=== PATIENT | female | born 1940 | race Two or more races ===

== ENCOUNTER 2021-05-31 21:40 | Inpatient (IN) | payer MEDICARE, MEDICAID ==
[~2021-05-31] VITALS: Ht 167.6 cm; Wt 67.1 kg
[2021-05-31] MEDS ORDERED: SODIUM CHLORIDE 0.9% 1,000 ML IV ONE (22:15)
[2021-05-31 23:01] LABS: BASOPHILS % 0.9 % (0.0-2.0); EOSINOPHILS % 1.1 % (0.0-5.0); HEMATOCRIT. 35.1 % (36.0-48.0); HEMOGLOBIN. 12.3 g/dL (12.0-16.0); LYMPHOCYTES % 21.2 % (20.0-50.0); MEAN CORPUSCULAR HEMOGLOBIN 37.1 pg (28.0-32.0); MEAN CORPUSCULAR VOLUME 105.5 fL (81.0-99.0); MONOCYTES % 14.3 % (2.0-8.0); NEUTROPHILS % 62.5 % (40.0-76.0); RED BLOOD CELL COUNT 3.33 mill/uL (4.2-5.4)
[2021-05-31 23:08] LABS: CHLORIDE 99 mEq/L (98-107)
[2021-05-31 23:32] LABS: MEAN PLATELET VOLUME 9.9 fl (7.4-10.4); PLATELET 93 x1000/uL (130-400)
[2021-06-01 01:06] LABS: CLARITY URINE CLEAR (CLEAR); COLOR URINE DARK YELLOW (YELLOW); KETONES URINE NEGATIVE (NEGATIVE); LEUKOCYTE ESTERASE URINE NEGATIVE (NEGATIVE); NITRITE URINE NEGATIVE (NEGATIVE); OCCULT BLOOD URINE NEGATIVE (NEGATIVE); PH URINE 6.5 (4.5-8.0); PROTEIN URINE NEGATIVE (NEGATIVE); SPECIFIC GRAVITY URINE 1.018 (1.005-1.030)
[2021-06-01] MEDS ORDERED: PIPERACILLIN/TAZ 3.375G PREMIX 50 ML IV ONE (01:15)
[2021-06-01] MEDS ORDERED: SODIUM POLYSTYRENE SULFONATE 15 G/60 ML BOT PO ONE (02:30)
[2021-06-01] MEDS ORDERED: HYDRALAZINE 20MG/ML VIAL IV SCH (05:00)
[2021-06-01] MEDS: AMLODIPINE 5MG TABLET PO SCH (05:56)
[2021-06-01] MEDS ORDERED: DEXTROSE 50% WATER 50ML SYRINGE IV PRN (07:45)
[2021-06-01] MEDS ORDERED: CEFTRIAXONE 1 G PREMIX 50 ML IV SCH (08:00)
[2021-06-01] MEDS ORDERED: CEFTRIAXONE 1,000 MG in DEXTROSE 5% WATER 50 ML IV SCH (09:30)
[2021-06-01] MEDS: BLOOD SUGAR DIAGNOSTIC STRIP TEST SCH ×3 (11:43→20:44)
[2021-06-01] MEDS: INSULIN LISPRO 100 UNITS/ML SUBCUT SCH ×3 (11:47→20:44)
[2021-06-01] MEDS ORDERED: LACTULOSE 20G/30ML UDC PO SCH (14:00)
[2021-06-01] MEDS: LACTULOSE 20G/30ML UDC PO SCH ×4 (15:00→22:48)
[2021-06-01] MEDS ORDERED: LINA5TAB PO (16:38)
[2021-06-01] MEDS ORDERED: ALD100 PO (16:38)
[2021-06-01] MEDS ORDERED: TORS10TA17 PO (16:38)
[2021-06-01 16:56] VITALS: BP 151/66
[2021-06-01 18:10] LABS: BASOPHILS % 0.6 % (0.0-2.0); EOSINOPHILS % 0.7 % (0.0-5.0); HEMATOCRIT. 36.6 % (36.0-48.0); HEMOGLOBIN. 12.3 g/dL (12.0-16.0); LYMPHOCYTES % 15.4 % (20.0-50.0); MEAN CORPUSCULAR HEMOGLOBIN 35.4 pg (28.0-32.0); MEAN CORPUSCULAR VOLUME 105.4 fL (81.0-99.0); MEAN PLATELET VOLUME 10.5 fl (7.4-10.4); MONOCYTES % 12.1 % (2.0-8.0); NEUTROPHILS % 71.2 % (40.0-76.0); PLATELET 106 x1000/uL (130-400); RED BLOOD CELL COUNT 3.48 mill/uL (4.2-5.4); RED CELL DISTRIBUTION WIDTH 14.3 % (11.6-14.6)
[2021-06-01 18:28] LABS: INR 1.4; PROTHROMBIN TIME 15.1 sec (9.6-11.0)
[2021-06-01 18:31] LABS: CHLORIDE 100 mEq/L (98-107)
[2021-06-01 20:00] VITALS: BP 149/90
[2021-06-01] MEDS: SPIRONOLACTONE 50MG TABLET PO SCH (20:42)
[2021-06-02] VITALS: BP 150/85
[2021-06-02] MEDS: LACTULOSE 20G/30ML UDC PO SCH ×6 (02:52→21:58)
[2021-06-02 04:00] VITALS: BP 117/94
[2021-06-02] MEDS: AMLODIPINE 5MG TABLET PO SCH ×2 (05:56→08:40)
[2021-06-02] MEDS: INSULIN LISPRO 100 UNITS/ML SUBCUT SCH ×4 (05:57→21:00)
[2021-06-02] MEDS: BLOOD SUGAR DIAGNOSTIC STRIP TEST SCH ×4 (05:57→21:58)
[2021-06-02 06:08] LABS: BASOPHILS % 0.4 % (0.0-2.0); EOSINOPHILS % 0.8 % (0.0-5.0); HEMATOCRIT. 36.5 % (36.0-48.0); HEMOGLOBIN. 12.6 g/dL (12.0-16.0); LYMPHOCYTES % 20.7 % (20.0-50.0); MEAN CORPUSCULAR VOLUME 104.5 fL (81.0-99.0); MEAN PLATELET VOLUME 10.9 fl (7.4-10.4); MONOCYTES % 11.1 % (2.0-8.0); PLATELET 100 x1000/uL (130-400); RED BLOOD CELL COUNT 3.49 mill/uL (4.2-5.4); RED CELL DISTRIBUTION WIDTH 14.1 % (11.6-14.6)
[2021-06-02 06:14] LABS: INR 1.4; PROTHROMBIN TIME 14.3 sec (9.6-11.0)
[2021-06-02 07:03] LABS: CHLORIDE 103 mEq/L (98-107)
[2021-06-02 08:15] VITALS: BP 163/92
[2021-06-02] MEDS ORDERED: LACTULOSE 20G/30ML UDC PO SCH (08:30)
[2021-06-02] MEDS: SPIRONOLACTONE 50MG TABLET PO SCH (08:40)
[2021-06-02 12:30] VITALS: BP 144/90
[2021-06-02] MEDS: CEFTRIAXONE 1,000 MG in DEXTROSE 5% WATER 50 ML IV SCH (13:08)
[2021-06-02 16:30] VITALS: BP 133/95
[2021-06-02 20:00] VITALS: BP 151/59
[2021-06-03] VITALS (7 sets, daily range): BP systolic 123–159; BP diastolic 62–72
[2021-06-03] MEDS: LACTULOSE 20G/30ML UDC PO SCH ×6 (02:53→21:58)
[2021-06-03] MEDS: BLOOD SUGAR DIAGNOSTIC STRIP TEST SCH ×4 (07:20→21:58)
[2021-06-03] MEDS: INSULIN LISPRO 100 UNITS/ML SUBCUT SCH ×4 (07:48→21:00)
[2021-06-03] MEDS: AMLODIPINE 5MG TABLET PO SCH (08:58)
[2021-06-03] MEDS: SPIRONOLACTONE 50MG TABLET PO SCH (08:58)
[2021-06-03] MEDS: CEFTRIAXONE 1,000 MG in DEXTROSE 5% WATER 50 ML IV SCH (12:41)
[2021-06-03] MEDS ORDERED: LACT10SO7 PO (13:16)
[2021-06-03] MEDS ORDERED: AMLO5TAB88 PO (13:16)
[2021-06-03 13:27] LABS: INR 1.4; PROTHROMBIN TIME 14.7 sec (9.6-11.0)
[2021-06-04] MEDS: LACTULOSE 20G/30ML UDC PO SCH ×6 (03:08→22:51)
[2021-06-04 04:01] VITALS: BP 158/72
[2021-06-04] MEDS: BLOOD SUGAR DIAGNOSTIC STRIP TEST SCH ×4 (06:23→21:04)
[2021-06-04 07:50] LABS: INR 1.4
[2021-06-04] MEDS: INSULIN LISPRO 100 UNITS/ML SUBCUT SCH ×4 (07:50→21:34)
[2021-06-04 07:55] VITALS: BP 150/73
[2021-06-04] MEDS: AMLODIPINE 5MG TABLET PO SCH (10:12)
[2021-06-04] MEDS: SPIRONOLACTONE 50MG TABLET PO SCH (10:12)
[2021-06-04 11:25] VITALS: BP 126/69
[2021-06-04] MEDS: CEFTRIAXONE 1,000 MG in DEXTROSE 5% WATER 50 ML IV SCH (13:20)
[2021-06-04 15:55] VITALS: BP 151/71
[2021-06-04 20:00] VITALS: BP 163/64
[2021-06-04] MEDS ORDERED: METOPROLOL SUCCINATE 50MG ER TABLET PO SCH (21:15)
[2021-06-04] MEDS: METOPROLOL SUCCINATE 50MG ER TABLET PO SCH (22:52)
[2021-06-05] VITALS: BP 153/69
[2021-06-05] MEDS: LACTULOSE 20G/30ML UDC PO SCH ×4 (02:27→15:00)
[2021-06-05 03:03] VITALS: BP 145/67
[2021-06-05 04:00] VITALS: BP 145/67
[2021-06-05] MEDS: BLOOD SUGAR DIAGNOSTIC STRIP TEST SCH ×3 (06:02→17:20)
[2021-06-05 07:04] LABS: CHLORIDE 111 mEq/L (98-107)
[2021-06-05 07:10] LABS: HEMATOCRIT. 32.7 % (36.0-48.0); HEMOGLOBIN. 11.3 g/dL (12.0-16.0); MEAN CORPUSCULAR HEMOGLOBIN 36.5 pg (28.0-32.0); MEAN CORPUSCULAR VOLUME 105.6 fL (81.0-99.0); RED BLOOD CELL COUNT 3.09 mill/uL (4.2-5.4); RED CELL DISTRIBUTION WIDTH 14.3 % (11.6-14.6)
[2021-06-05] MEDS: INSULIN LISPRO 100 UNITS/ML SUBCUT SCH ×3 (07:50→17:28)
[2021-06-05 08:00] VITALS: BP 140/55
[2021-06-05] MEDS ORDERED: AMLODIPINE 10MG TABLET PO SCH (09:00)
[2021-06-05] MEDS: SPIRONOLACTONE 50MG TABLET PO SCH (09:00)
[2021-06-05 10:11] LABS: PLATELET ESTIMATE DECREASED
[2021-06-05 10:12] LABS: MEAN PLATELET VOLUME 10.3 fl (7.4-10.4); PLATELET 92 x1000/uL (130-400)
[2021-06-05] MEDS: CEFTRIAXONE 1,000 MG in DEXTROSE 5% WATER 50 ML IV SCH (12:40)
[2021-06-05] MEDS: METOPROLOL SUCCINATE 50MG ER TABLET PO SCH (17:00)
[2021-06-05 21:02] LABS: HEPATITIS B SURFACE ANTIGEN NEGATIVE
== END 2021-06-05 19:00 | DRG 441 ==
LOC: ER 21:40 → MICUSO 06-01 01:14 → 6WST 06-01 14:11
PROVIDERS: ADMIT Family Medicine; ATTEND Family Medicine
DX: K72.90 Hepatic failure, unspecified without coma (principal); E43 Unspecified severe protein-calorie malnutrition; J18.9 Pneumonia, unspecified organism; R18.8 Other ascites; K74.60 Unspecified cirrhosis of liver; E11.65 Type 2 diabetes mellitus with hyperglycemia; D69.6 Thrombocytopenia, unspecified; K80.20 Calculus of gallbladder without cholecystitis without obstruction; Z20.822 Contact with and (suspected) exposure to COVID-19; Z79.899 Other long term (current) drug therapy; Z90.710 Acquired absence of both cervix and uterus; Z68.23 Body mass index [BMI] 23.0-23.9, adult; I50.9 Heart failure, unspecified; N20.0 Calculus of kidney; I71.9 Aortic aneurysm of unspecified site, without rupture
CPT/HCPCS: 36415; 71045; 74176; 76700; 80048; 80053; 80076; 81003; 82140; 82962; 83036; 83605; 83880; 84145; 84484; 85025; 86705; 86709; 86803; 87340; 87426; 92610; 93005; 99285; J0360; J0696; J1815; J2543; J7030; J7060

== ENCOUNTER 2021-06-23 07:50 | Inpatient (IN) | payer MEDICARE, MEDICAID ==
[~2021-06-23] VITALS: Ht 167.6 cm; Wt 81.7 kg
[~2021-06-23 07:50] MED LIST: ALD100 PO; AMLO5TAB88 PO; LACT10SO7 PO; LINA5TAB PO; TORS10TA17 PO
[2021-06-23] MEDS ORDERED: VANCOMYCIN 1G PREMIX 200 ML IV ONE ×2 (08:00)
[2021-06-23] MEDS ORDERED: PIPERACILLIN/TAZ 3.375G PREMIX 50 ML IV ONE ×2 (08:00)
[2021-06-23] MEDS ORDERED: SODIUM CHLORIDE 0.9% 1000ML BAG (SEPSIS BOLUS) IV ONE ×2 (08:00)
[2021-06-23 09:28] LABS: HEMATOCRIT. 32.4 % (36.0-48.0); HEMOGLOBIN. 11.1 g/dL (12.0-16.0); MEAN CORPUSCULAR HEMOGLOBIN 36.4 pg (28.0-32.0); MEAN CORPUSCULAR VOLUME 106.2 fL (81.0-99.0); RED BLOOD CELL COUNT 3.05 mill/uL (4.2-5.4); RED CELL DISTRIBUTION WIDTH 15.4 % (11.6-14.6)
[2021-06-23 09:34] LABS: CHLORIDE 102 mEq/L (98-107)
[2021-06-23 09:37] LABS: INR 1.9; PROTHROMBIN TIME 19.5 sec (9.6-11.0)
[2021-06-23] MEDS ORDERED: INSULIN REGULAR (HUMULIN R) 300UNITS/3ML VIAL IV ONE (10:00)
[2021-06-23] MEDS ORDERED: DEXTROSE 50% WATER 50ML SYRINGE IV ONE (10:00)
[2021-06-23] MEDS ORDERED: SODIUM BICARBONATE 8.4% 1 MEQ/ML 50ML SYR IV ONE ×4 (10:00→16:45)
[2021-06-23] MEDS ORDERED: CALCIUM CHLORIDE 1GM/10ML SYR IV ONE (10:00)
[2021-06-23] MEDS ORDERED: ALBUTEROL (0.083%) 2.5MG/3ML NEB HHN ONE (10:00)
[2021-06-23 10:04] LABS: CLARITY URINE TURBID (CLEAR); COLOR URINE ORANGE (YELLOW); KETONES URINE TRACE (NEGATIVE); LEUKOCYTE ESTERASE URINE 3+ (NEGATIVE); NITRITE URINE NEGATIVE (NEGATIVE); OCCULT BLOOD URINE 3+ (NEGATIVE); PH URINE 5.5 (4.5-8.0); PROTEIN URINE 1+ (NEGATIVE); SPECIFIC GRAVITY URINE 1.014 (1.005-1.030)
[2021-06-23] MEDS ORDERED: HYDRALAZINE 20MG/ML VIAL IV NR (11:45)
[2021-06-23] MEDS ORDERED: DEXTROSE 50% WATER 50ML SYRINGE IV PRN (14:15)
[2021-06-23] MEDS ORDERED: SODIUM POLYSTYRENE SULFONATE 15 G/60 ML BOT PO NR (15:00)
[2021-06-23] MEDS ORDERED: SODIUM BICARBONATE 8.4% 1 MEQ/ML 50ML SYR IV NR (15:00)
[2021-06-23] MEDS: SODIUM BICARBONATE 150 MEQ in DEXTROSE 5% WATER 1,000 ML IV SCH (15:00)
[2021-06-23] MEDS ORDERED: ONDANSETRON HCL 4MG/2ML INJ IV PRN (15:15)
[2021-06-23] MEDS ORDERED: PIPERACILLIN/TAZOBACTAM 3.375 G in DEXTROSE 5% WATER 50 ML IV SCH ×2 (15:15→21:00)
[2021-06-23] MEDS ORDERED: VANCOMYCIN 500MG PREMIX 100 ML IV NR (16:00)
[2021-06-23] MEDS: SODIUM CHLORIDE 0.45% 1,000 ML IV SCH (16:14)
[2021-06-23 16:39] LABS: BG BASE EXCESS -12.5 mmol/L (-2.0-2.0); BG CARBOXYHEMOGLOBIN 0.2 % (0.5-1.5); BG DEOXYHEMOGLOBIN 3.5 % (0.0-5.0); BG FRACTION INSPIRED OXYGEN 21; BG HCO3 ACT 10.3 mmol/L (22.0-26.0); BG METHEMOGLOBIN 0.2 % (0.0-1.5); BG OXYGEN SATURATION 96.5 % (92.0-98.5); BG OXYHEMOGLOBIN 96.1 % (94.0-97.0); BG PCO2 17.8 mmHg (35.0-45.0); BG PH 7.381 (7.350-7.450); BG PO2 89.9 mmHg (75.0-100.0); BG SAMPLE SITE RIGHT RADIAL; BG TOTAL HEMOGLOBIN 11.8 g/dL (12.0-18.0); BG VENT MODE ROOM AIR
[2021-06-23] MEDS: INSULIN LISPRO 100 UNITS/ML SUBCUT SCH (18:00)
[2021-06-23] MEDS: BLOOD SUGAR DIAGNOSTIC STRIP TEST SCH (18:00)
[2021-06-23] MEDS ORDERED: MIDAZOLAM HCL 50 MG in DEXTROSE 5% WATER 40 ML IV ONE (18:45)
[2021-06-23] MEDS ORDERED: FAMOTIDINE 20MG/2ML VIAL IV ONE (19:00)
[2021-06-23] MEDS ORDERED: DIPHENHYDRAMINE 50MG/ML VIAL IV ONE (19:00)
[2021-06-23] MEDS ORDERED: METHYLPREDNISOLONE SOD SUCC 125 MG/2 ML VIAL IV ONE (19:00)
[2021-06-23] MEDS ORDERED: MIDAZOLAM 100MG/100ML PMX 100 ML IV SCH (19:00)
[2021-06-23 19:48] LABS: BG BASE EXCESS -11.6 mmol/L (-2.0-2.0); BG CARBOXYHEMOGLOBIN 0.3 % (0.5-1.5); BG DEOXYHEMOGLOBIN 0.2 % (0.0-5.0); BG FRACTION INSPIRED OXYGEN 100; BG METHEMOGLOBIN 0.3 % (0.0-1.5); BG OXYGEN SATURATION 99.8 % (92.0-98.5); BG OXYHEMOGLOBIN 99.2 % (94.0-97.0); BG PCO2 25.8 mmHg (35.0-45.0); BG PO2 470.8 mmHg (75.0-100.0); BG SAMPLE SITE RIGHT BRACHIAL; BG VENT MODE VENT - AC
[2021-06-23] MEDS: HYDRALAZINE 20MG/ML VIAL IV PRN (21:30)
[2021-06-23 23:19] VITALS: BP 129/59
[2021-06-23 23:30] VITALS: BP 139/72
[2021-06-23 23:45] VITALS: BP 121/62
[2021-06-23] MEDS ORDERED: MIDAZOLAM 100MG/100ML PMX 100 ML IV PRN (23:45)
[2021-06-23] MEDS ORDERED: NOREPINEPHRINE 8 MG in DEXT 5% WATER 242 ML IV PRN (23:45)
[2021-06-24] VITALS (64 sets, daily range): BP systolic 97–160; BP diastolic 49–84
[2021-06-24] MEDS ORDERED: MIDAZOLAM HCL 100 MG in SODIUM CHLORIDE 0.9% 100 ML IV PRN (00:15)
[2021-06-24] MEDS: SODIUM BICARBONATE 150 MEQ in DEXTROSE 5% WATER 1,000 ML IV SCH ×3 (01:07→23:33)
[2021-06-24] MEDS: BLOOD SUGAR DIAGNOSTIC STRIP TEST SCH ×4 (05:21→17:18)
[2021-06-24] MEDS: SODIUM CHLORIDE 0.45% 1,000 ML IV SCH (05:28)
[2021-06-24] MEDS: FENTANYL 2500MCG/250ML PMX 250 ML IV PRN (05:35)
[2021-06-24 05:38] LABS: HEMATOCRIT. 28.7 % (36.0-48.0); HEMOGLOBIN. 9.9 g/dL (12.0-16.0); MEAN CORPUSCULAR HEMOGLOBIN 36.3 pg (28.0-32.0); MEAN CORPUSCULAR VOLUME 105.5 fL (81.0-99.0); RED BLOOD CELL COUNT 2.72 mill/uL (4.2-5.4); RED CELL DISTRIBUTION WIDTH 15.5 % (11.6-14.6)
[2021-06-24 05:45] LABS: CHLORIDE 105 mEq/L (98-107)
[2021-06-24] MEDS: INSULIN LISPRO 100 UNITS/ML SUBCUT SCH ×4 (05:45→17:25)
[2021-06-24 05:59] LABS: PHOSPHORUS 4.4 mg/dL (2.5-4.9)
[2021-06-24 06:01] LABS: LDL CHOLESTEROL 55 mg/dL (5-100)
[2021-06-24 06:03] LABS: HDL CHOLESTEROL 19 mg/dL (40-59)
[2021-06-24] MEDS ORDERED: SODIUM POLYSTYRENE SULFONATE 15 G/60 ML BOT PO NR ×2 (07:45→18:30)
[2021-06-24] MEDS: PIPERACILLIN/TAZOBACTAM 3.375 G in DEXTROSE 5% WATER 50 ML IV SCH ×2 (08:03→22:00)
[2021-06-24 08:10] LABS: BG BASE EXCESS -9.2 mmol/L (-2.0-2.0); BG CARBOXYHEMOGLOBIN 0.3 % (0.5-1.5); BG DEOXYHEMOGLOBIN 1.8 % (0.0-5.0); BG HCO3 ACT 13.1 mmol/L (22.0-26.0); BG METHEMOGLOBIN 0.3 % (0.0-1.5); BG OXYGEN SATURATION 98.2 % (92.0-98.5); BG OXYHEMOGLOBIN 97.6 % (94.0-97.0); BG PCO2 19.7 mmHg (35.0-45.0); BG PO2 112.7 mmHg (75.0-100.0); BG SAMPLE SITE RIGHT BRACHIAL; BG TOTAL HEMOGLOBIN 10.7 g/dL (12.0-18.0); BG VENT MODE VENT - AC
[2021-06-24 09:33] LABS: CREATINE KINASE 52 IU/L (26-192)
[2021-06-24] MEDS ORDERED: SODIUM BICARBONATE 8.4% 1 MEQ/ML 50ML SYR IV SCH (10:00)
[2021-06-24 11:35] LABS: PLATELET ESTIMATE DECREASED
[2021-06-24] MEDS: METHYLPREDNISOLONE SOD SUCC 40 MG/ML VIAL IV SCH (17:25)
[2021-06-24] MEDS: FAMOTIDINE 20MG TABLET PO SCH (22:01)
[2021-06-25] VITALS (57 sets, daily range): BP systolic 97–135; BP diastolic 51–90
[2021-06-25] MEDS: BLOOD SUGAR DIAGNOSTIC STRIP TEST SCH ×5 (00:50→23:20)
[2021-06-25] MEDS: METHYLPREDNISOLONE SOD SUCC 40 MG/ML VIAL IV SCH ×3 (01:00→17:21)
[2021-06-25] MEDS: INSULIN LISPRO 100 UNITS/ML SUBCUT SCH ×5 (01:01→23:20)
[2021-06-25 05:28] LABS: CHLORIDE 103 mEq/L (98-107)
[2021-06-25] MEDS: FOLIC ACID/VITAMIN B COMP W-C TABLET PO SCH (07:51)
[2021-06-25] MEDS: PIPERACILLIN/TAZOBACTAM 3.375 G in DEXTROSE 5% WATER 50 ML IV SCH (07:51)
[2021-06-25 08:34] LABS: BG BASE EXCESS 4.9 mmol/L (-2.0-2.0); BG DEOXYHEMOGLOBIN 7.8 % (0.0-5.0); BG FRACTION INSPIRED OXYGEN 30; BG HCO3 ACT 27.6 mmol/L (22.0-26.0); BG OXYGEN SATURATION 92.2 % (92.0-98.5); BG OXYHEMOGLOBIN 92.2 % (94.0-97.0); BG PCO2 33.5 mmHg (35.0-45.0); BG PH 7.533 (7.350-7.450); BG PO2 64.7 mmHg (75.0-100.0); BG SAMPLE SITE RIGHT RADIAL; BG TOTAL HEMOGLOBIN 9.8 g/dL (12.0-18.0); BG VENT MODE VENT - AC
[2021-06-25 10:22] LABS: HEMATOCRIT. 26.4 % (36.0-48.0); HEMOGLOBIN. 9.2 g/dL (12.0-16.0); MEAN CORPUSCULAR HEMOGLOBIN 36.2 pg (28.0-32.0); MEAN CORPUSCULAR VOLUME 103.7 fL (81.0-99.0); RED BLOOD CELL COUNT 2.54 mill/uL (4.2-5.4); RED CELL DISTRIBUTION WIDTH 15.6 % (11.6-14.6)
[2021-06-25] MEDS ORDERED: VANCOMYCIN 1G PREMIX 200 ML IV NR (11:00)
[2021-06-25] MEDS: SODIUM CHLORIDE 0.45% 1,000 ML IV SCH ×2 (11:04→21:43)
[2021-06-25 11:09] LABS: MEAN PLATELET VOLUME 9.7 fl (7.4-10.4); PLATELET 69 x1000/uL (130-400); PLATELET ESTIMATE DECREASED
[2021-06-25] MEDS: METOCLOPRAMIDE HCL 10MG/2ML VIAL IV SCH ×3 (11:23→23:19)
[2021-06-25] MEDS: METRONIDAZOLE 500 MG PREMIX 100 ML IV SCH ×2 (14:20→21:41)
[2021-06-25] MEDS: CEFEPIME 2,000 MG in DEXT 5% WATER 100 ML IV SCH (14:20)
[2021-06-25 18:05] LABS: D-DIMER 16.3 mg/L FEU (<0.50); INR 2.4; PROTHROMBIN TIME 24.1 sec (9.6-11.0)
[2021-06-25] MEDS: FAMOTIDINE 20MG TABLET PO SCH (21:41)
[2021-06-26] VITALS (85 sets, daily range): BP systolic 114–157; BP diastolic 55–98
[2021-06-26] MEDS: METHYLPREDNISOLONE SOD SUCC 40 MG/ML VIAL IV SCH ×3 (02:21→18:35)
[2021-06-26] MEDS: FENTANYL 2500MCG/250ML PMX 250 ML IV PRN (04:21)
[2021-06-26] MEDS: METOCLOPRAMIDE HCL 10MG/2ML VIAL IV SCH ×4 (05:26→23:16)
[2021-06-26] MEDS: METRONIDAZOLE 500 MG PREMIX 100 ML IV SCH ×3 (05:26→21:41)
[2021-06-26 05:53] LABS: HEMATOCRIT. 29.7 % (36.0-48.0); HEMOGLOBIN. 10.2 g/dL (12.0-16.0); MEAN CORPUSCULAR HEMOGLOBIN 36.2 pg (28.0-32.0); MEAN CORPUSCULAR VOLUME 105.3 fL (81.0-99.0); RED BLOOD CELL COUNT 2.82 mill/uL (4.2-5.4); RED CELL DISTRIBUTION WIDTH 15.3 % (11.6-14.6)
[2021-06-26] MEDS: BLOOD SUGAR DIAGNOSTIC STRIP TEST SCH ×4 (05:56→23:16)
[2021-06-26] MEDS: INSULIN LISPRO 100 UNITS/ML SUBCUT SCH ×4 (05:59→23:21)
[2021-06-26 06:35] LABS: INR 2.4; PROTHROMBIN TIME 23.8 sec (9.6-11.0)
[2021-06-26] MEDS: SODIUM CHLORIDE 0.45% 1,000 ML IV SCH (07:13)
[2021-06-26 09:00] LABS: PLATELET ESTIMATE DECREASED
[2021-06-26 09:01] LABS: MEAN PLATELET VOLUME 9.7 fl (7.4-10.4)
[2021-06-26 09:02] LABS: PLATELET 79 x1000/uL (130-400)
[2021-06-26] MEDS: LACTULOSE 20G/30ML UDC PO PRN (09:09)
[2021-06-26] MEDS: FOLIC ACID/VITAMIN B COMP W-C TABLET PO SCH (09:09)
[2021-06-26 09:20] LABS: BG BASE EXCESS 4.7 mmol/L (-2.0-2.0); BG CARBOXYHEMOGLOBIN 0.2 % (0.5-1.5); BG DEOXYHEMOGLOBIN 6.3 % (0.0-5.0); BG FRACTION INSPIRED OXYGEN 30; BG HCO3 ACT 26.2 mmol/L (22.0-26.0); BG OXYGEN SATURATION 93.7 % (92.0-98.5); BG OXYHEMOGLOBIN 93.5 % (94.0-97.0); BG PCO2 28.7 mmHg (35.0-45.0); BG PH 7.578 (7.350-7.450); BG PO2 65.5 mmHg (75.0-100.0); BG SAMPLE SITE RIGHT RADIAL; BG TOTAL HEMOGLOBIN 10.7 g/dL (12.0-18.0); BG VENT MODE VENT - AC
[2021-06-26] MEDS: SODIUM CHLORIDE 0.9% 1,000 ML IV SCH (12:39)
[2021-06-26] MEDS: CEFEPIME 2,000 MG in DEXT 5% WATER 100 ML IV SCH (13:40)
[2021-06-26] MEDS ORDERED: BISACODYL 10MG SUPP PR NR (16:51)
[2021-06-26] MEDS: FAMOTIDINE 20MG TABLET PO SCH (21:41)
[2021-06-27] VITALS (94 sets, daily range): BP systolic 113–178; BP diastolic 53–98
[2021-06-27] MEDS: METHYLPREDNISOLONE SOD SUCC 40 MG/ML VIAL IV SCH ×3 (01:28→18:01)
[2021-06-27] MEDS: BLOOD SUGAR DIAGNOSTIC STRIP TEST SCH ×4 (05:26→23:01)
[2021-06-27] MEDS: METOCLOPRAMIDE HCL 10MG/2ML VIAL IV SCH ×4 (05:29→23:04)
[2021-06-27] MEDS: METRONIDAZOLE 500 MG PREMIX 100 ML IV SCH ×3 (05:29→21:09)
[2021-06-27] MEDS: INSULIN LISPRO 100 UNITS/ML SUBCUT SCH ×4 (05:31→23:05)
[2021-06-27 05:53] LABS: HEMATOCRIT. 30.1 % (36.0-48.0); HEMOGLOBIN. 10.3 g/dL (12.0-16.0); MEAN CORPUSCULAR VOLUME 105.1 fL (81.0-99.0); RED BLOOD CELL COUNT 2.86 mill/uL (4.2-5.4); RED CELL DISTRIBUTION WIDTH 15.5 % (11.6-14.6)
[2021-06-27 06:08] LABS: INR 2.6; PROTHROMBIN TIME 25.9 sec (9.6-11.0)
[2021-06-27 06:09] LABS: CHLORIDE 99 mEq/L (98-107)
[2021-06-27 06:17] LABS: PHOSPHORUS 3.6 mg/dL (2.5-4.9)
[2021-06-27] MEDS: SODIUM CHLORIDE 0.9% 1,000 ML IV SCH (07:26)
[2021-06-27 08:36] LABS: BG BASE EXCESS 4.8 mmol/L (-2.0-2.0); BG CARBOXYHEMOGLOBIN 0.2 % (0.5-1.5); BG DEOXYHEMOGLOBIN 4.7 % (0.0-5.0); BG HCO3 ACT 26.7 mmol/L (22.0-26.0); BG METHEMOGLOBIN 0.3 % (0.0-1.5); BG OXYGEN SATURATION 95.3 % (92.0-98.5); BG OXYHEMOGLOBIN 94.8 % (94.0-97.0); BG PCO2 30.7 mmHg (35.0-45.0); BG PH 7.557 (7.350-7.450); BG PO2 76.5 mmHg (75.0-100.0); BG SAMPLE SITE RIGHT RADIAL; BG TOTAL HEMOGLOBIN 11.5 g/dL (12.0-18.0); BG VENT MODE VENT - AC
[2021-06-27 09:18] LABS: PLATELET ESTIMATE DECREASED
[2021-06-27 09:19] LABS: MEAN PLATELET VOLUME 9.6 fl (7.4-10.4); PLATELET 69 x1000/uL (130-400)
[2021-06-27] MEDS: FOLIC ACID/VITAMIN B COMP W-C TABLET PO SCH (09:35)
[2021-06-27] MEDS ORDERED: VANCOMYCIN 1GM PMX (XELLIA) 200 ML IV SCH (11:00)
[2021-06-27] MEDS: LACTULOSE 20G/30ML UDC PO PRN (11:50)
[2021-06-27] MEDS: HYDRALAZINE 20MG/ML VIAL IV PRN (13:50)
[2021-06-27] MEDS: CEFEPIME 2,000 MG in DEXT 5% WATER 100 ML IV SCH (14:14)
[2021-06-27] MEDS: FAMOTIDINE 20MG TABLET PO SCH (21:09)
[2021-06-27] MEDS: FENTANYL 2500MCG/250ML PMX 250 ML IV PRN (23:05)
[2021-06-28] VITALS (87 sets, daily range): BP systolic 106–145; BP diastolic 45–97
[2021-06-28] MEDS: METHYLPREDNISOLONE SOD SUCC 40 MG/ML VIAL IV SCH ×3 (01:48→17:39)
[2021-06-28] MEDS: SODIUM CHLORIDE 0.9% 1,000 ML IV SCH ×2 (01:48→21:30)
[2021-06-28] MEDS: METOCLOPRAMIDE HCL 10MG/2ML VIAL IV SCH ×3 (05:11→17:40)
[2021-06-28] MEDS: METRONIDAZOLE 500 MG PREMIX 100 ML IV SCH ×3 (05:11→21:24)
[2021-06-28] MEDS: BLOOD SUGAR DIAGNOSTIC STRIP TEST SCH ×3 (05:12→17:40)
[2021-06-28] MEDS: INSULIN LISPRO 100 UNITS/ML SUBCUT SCH ×3 (05:12→17:38)
[2021-06-28 05:24] LABS: HEMATOCRIT. 28.9 % (36.0-48.0); HEMOGLOBIN. 9.9 g/dL (12.0-16.0); MEAN CORPUSCULAR HEMOGLOBIN 36.3 pg (28.0-32.0); MEAN CORPUSCULAR VOLUME 106.4 fL (81.0-99.0); RED BLOOD CELL COUNT 2.72 mill/uL (4.2-5.4); RED CELL DISTRIBUTION WIDTH 15.3 % (11.6-14.6)
[2021-06-28 05:40] LABS: PHOSPHORUS 4.6 mg/dL (2.5-4.9)
[2021-06-28 05:42] LABS: INR 3.3; PROTHROMBIN TIME 32.1 sec (9.6-11.0)
[2021-06-28 05:56] LABS: HEPATITIS B SURFACE ANTIGEN NEGATIVE
[2021-06-28] MEDS: FOLIC ACID/VITAMIN B COMP W-C TABLET PO SCH (08:10)
[2021-06-28 12:40] LABS: NUCLEATED RED BLOOD CELLS 1 /100 WBC
[2021-06-28 12:43] LABS: MEAN PLATELET VOLUME 9.5 fl (7.4-10.4); PLATELET 69 x1000/uL (130-400); PLATELET ESTIMATE DECREASED
[2021-06-28] MEDS: CEFEPIME 2,000 MG in DEXT 5% WATER 100 ML IV SCH (14:30)
[2021-06-28] MEDS: LACTULOSE 20G/30ML UDC PO PRN (21:24)
[2021-06-28] MEDS: FAMOTIDINE 20MG TABLET PO SCH (21:24)
[2021-06-29] VITALS (39 sets, daily range): BP systolic 103–157; BP diastolic 42–98
[2021-06-29] MEDS ORDERED: FENTANYL CITRATE/PF 2,500 MCG in SODIUM CHLORIDE 0.9% 200 ML IV PRN (00:30)
[2021-06-29] MEDS ORDERED: FENTANYL 2500MCG/250ML PMX 250 ML IV PRN (01:00)
[2021-06-29] MEDS: METOCLOPRAMIDE HCL 10MG/2ML VIAL IV SCH ×4 (01:22→18:42)
[2021-06-29] MEDS: METHYLPREDNISOLONE SOD SUCC 40 MG/ML VIAL IV SCH ×3 (01:22→18:44)
[2021-06-29] MEDS: INSULIN LISPRO 100 UNITS/ML SUBCUT SCH ×4 (01:23→18:50)
[2021-06-29] MEDS: BLOOD SUGAR DIAGNOSTIC STRIP TEST SCH ×4 (05:17→18:42)
[2021-06-29 05:31] LABS: HEMATOCRIT. 30.8 % (36.0-48.0); HEMOGLOBIN. 10.5 g/dL (12.0-16.0); MEAN CORPUSCULAR HEMOGLOBIN 36.6 pg (28.0-32.0); MEAN CORPUSCULAR VOLUME 107.1 fL (81.0-99.0); RED BLOOD CELL COUNT 2.87 mill/uL (4.2-5.4); RED CELL DISTRIBUTION WIDTH 15.6 % (11.6-14.6)
[2021-06-29] MEDS: METRONIDAZOLE 500 MG PREMIX 100 ML IV SCH ×3 (05:31→21:31)
[2021-06-29 05:36] LABS: INR 3.5; PROTHROMBIN TIME 34.4 sec (9.6-11.0)
[2021-06-29 05:37] LABS: CHLORIDE 103 mEq/L (98-107)
[2021-06-29 05:43] LABS: PHOSPHORUS 5.1 mg/dL (2.5-4.9)
[2021-06-29] MEDS: FOLIC ACID/VITAMIN B COMP W-C TABLET PO SCH (09:49)
[2021-06-29 12:43] LABS: NUCLEATED RED BLOOD CELLS 2 /100 WBC; PLATELET ESTIMATE DECREASED
[2021-06-29 12:44] LABS: MEAN PLATELET VOLUME 9.7 fl (7.4-10.4); PLATELET 72 x1000/uL (130-400)
[2021-06-29] MEDS: CEFEPIME 2,000 MG in DEXT 5% WATER 100 ML IV SCH (15:26)
[2021-06-29] MEDS ORDERED: PANTOPRAZOLE SODIUM 40 MG/VIAL IV SCH (21:00)
[2021-06-29] MEDS: LACTULOSE 20G/30ML UDC PO PRN (21:31)
[2021-06-30] VITALS (56 sets, daily range): BP systolic 98–173; BP diastolic 54–98
[2021-06-30] MEDS: METOCLOPRAMIDE HCL 10MG/2ML VIAL IV SCH ×2 (01:19→05:12)
[2021-06-30] MEDS: INSULIN LISPRO 100 UNITS/ML SUBCUT SCH ×2 (01:19→05:13)
[2021-06-30] MEDS: METHYLPREDNISOLONE SOD SUCC 40 MG/ML VIAL IV SCH ×2 (01:19→09:04)
[2021-06-30] MEDS: BLOOD SUGAR DIAGNOSTIC STRIP TEST SCH ×2 (05:08)
[2021-06-30] MEDS: METRONIDAZOLE 500 MG PREMIX 100 ML IV SCH (05:12)
[2021-06-30 06:08] LABS: HEMATOCRIT. 29.1 % (36.0-48.0); HEMOGLOBIN. 9.8 g/dL (12.0-16.0); MEAN CORPUSCULAR HEMOGLOBIN 36.6 pg (28.0-32.0); MEAN CORPUSCULAR VOLUME 108.8 fL (81.0-99.0); RED BLOOD CELL COUNT 2.68 mill/uL (4.2-5.4); RED CELL DISTRIBUTION WIDTH 15.5 % (11.6-14.6)
[2021-06-30 06:20] LABS: CHLORIDE 105 mEq/L (98-107)
[2021-06-30 06:26] LABS: PHOSPHORUS 5.3 mg/dL (2.5-4.9)
[2021-06-30 06:43] LABS: INR 3.8; PROTHROMBIN TIME 36.6 sec (9.6-11.0)
[2021-06-30 08:18] LABS: NUCLEATED RED BLOOD CELLS 3 /100 WBC; PLATELET ESTIMATE DECREASED
[2021-06-30 08:21] LABS: MEAN PLATELET VOLUME 10.9 fl (7.4-10.4); PLATELET 62 x1000/uL (130-400)
[2021-06-30 08:30] LABS: BG BASE EXCESS -3.6 mmol/L (-2.0-2.0); BG DEOXYHEMOGLOBIN 3.1 % (0.0-5.0); BG FRACTION INSPIRED OXYGEN 30; BG METHEMOGLOBIN 0.3 % (0.0-1.5); BG OXYGEN SATURATION 96.9 % (92.0-98.5); BG OXYHEMOGLOBIN 96.6 % (94.0-97.0); BG PH 7.512 (7.350-7.450); BG PO2 92.1 mmHg (75.0-100.0); BG SAMPLE SITE RIGHT RADIAL; BG TOTAL HEMOGLOBIN 10.7 g/dL (12.0-18.0); BG VENT MODE VENT - AC
[2021-06-30] MEDS: FOLIC ACID/VITAMIN B COMP W-C TABLET PO SCH (09:04)
[2021-06-30] MEDS: MORPHINE SULFATE 250 MG in DEXT 5% WATER 225 ML IV PRN ×2 (12:46→19:33)
== END 2021-06-30 22:12 | DRG 870 ==
LOC: ER 08:08 → EDBEDREQ 11:18 → EDBEDREQTM 11:18 → EDBEDREQ 11:19 → EDBEDREQSVC 18:54 → EDBEDREQ 18:54 → EDBEDREQTM 18:54 → ENRESERV 21:15 → MICUNO 21:16 → ENRESERV 21:21
PROVIDERS: ADMIT Family Medicine; ATTEND Family Medicine
PROC: 5A1955Z Respiratory Ventilation, Greater than 96 Consecutive Hours (ICD-10-PCS; principal; 2021-06-23)
PROC: 0BH17EZ Insertion of Endotracheal Airway into Trachea, Via Natural or Artificial Opening (ICD-10-PCS; 2021-06-23)
DX: A41.51 Sepsis due to Escherichia coli [E. coli] (principal); E43 Unspecified severe protein-calorie malnutrition; G93.41 Metabolic encephalopathy; J96.01 Acute respiratory failure with hypoxia; N17.0 Acute kidney failure with tubular necrosis; K72.00 Acute and subacute hepatic failure without coma; R65.21 Severe sepsis with septic shock; J15.5 Pneumonia due to Escherichia coli; D68.9 Coagulation defect, unspecified; E87.1 Hypo-osmolality and hyponatremia; N39.0 Urinary tract infection, site not specified; R18.8 Other ascites; I50.30 Unspecified diastolic (congestive) heart failure; K92.2 Gastrointestinal hemorrhage, unspecified; T78.3XXA Angioneurotic edema, initial encounter; E78.5 Hyperlipidemia, unspecified; E86.0 Dehydration; E87.5 Hyperkalemia; I11.0 Hypertensive heart disease with heart failure; K74.60 Unspecified cirrhosis of liver; K80.20 Calculus of gallbladder without cholecystitis without obstruction; I27.20 Pulmonary hypertension, unspecified; N20.0 Calculus of kidney; Z20.822 Contact with and (suspected) exposure to COVID-19; D53.9 Nutritional anemia, unspecified; E11.65 Type 2 diabetes mellitus with hyperglycemia; E88.09 Other disorders of plasma-protein metabolism, not elsewhere classified; L89.156 Pressure-induced deep tissue damage of sacral region; Z66 Do not resuscitate; D69.6 Thrombocytopenia, unspecified; I36.1 Nonrheumatic tricuspid (valve) insufficiency; I34.0 Nonrheumatic mitral (valve) insufficiency; I46.9 Cardiac arrest, cause unspecified; K31.89 Other diseases of stomach and duodenum; Z79.899 Other long term (current) drug therapy; Z68.29 Body mass index [BMI] 29.0-29.9, adult; Z87.442 Personal history of urinary calculi; Z82.49 Family history of ischemic heart disease and other diseases of the circulatory system; Z51.5 Encounter for palliative care
CPT/HCPCS: 36415; 36600; 71045; 71250; 74018; 74176; 76770; 80048; 80053; 80061; 80076; 80202; 81003; 82140; 82248; 82375; 82550; 82805; 82962; 83036; 83605; 83735; 84100; 84132; 84134; 84145; 84484; 85025; 85379; 85384; 86705; 86709; 86803; 87070; 87077; 87186; 87340; 87426; 93005; 93306; 94002; 94003; 94640; 99291; A6261; C9113; J0360; J0692; J1200; J1815; J2250; J2270; J2543; J2765; J2920; J2930; J3010; J3370; J3490; J7030; J7040; J7060; J7070; A4315